=== PATIENT | female | born 1970 ===

== ENCOUNTER 2018-07-10 13:11 | Emergency (ER) | payer SELFPAY ==
[~2018-07-10] VITALS: Ht 165.1 cm; Wt 81.8 kg
[2018-07-10 13:37] VITALS: BP 115/72
== END 2018-07-10 14:50 | disposition left against medical advice (07) ==
LOC: EMS 13:13
DX: F22 Delusional disorders (principal); Z53.21 Procedure and treatment not carried out due to patient leaving prior to being seen by health care provider